=== PATIENT | male | born 1990 | race Two or more races ===

== ENCOUNTER 2017-07-17 15:11 | Inpatient (IN) | payer OTHER ==
[2017-07-17] MEDS ORDERED: P-EPHED 60MG/TRIPROLIDI 2.5MG TABLET PO PRN (15:18)
[2017-07-17] MEDS ORDERED: MAG HYDROX/AL HYDROX/SIMETH 30 ML UNIT-DOSE CUP PO PRN (15:18)
[2017-07-17] MEDS ORDERED: MAGNESIUM HYDROX 2400MG/30ML ORAL SUSPENSION 30 ML CUP PO PRN (15:18)
[2017-07-17] MEDS ORDERED: guaiFENesin/D-METHORPHAN HB 10 ML UNIT-DOSE CUPS PO PRN (15:18)
[2017-07-17] MEDS ORDERED: ACETAMINOPHEN 325 MG TABLET (FP) PO PRN (15:18)
[2017-07-17] MEDS ORDERED: MAGNESIUM CITRATE 300 ML BOTTLE PO PRN (15:18)
[2017-07-17] MEDS ORDERED: MENTHOL/PHENOL 1 EACH UD MM PRN (15:18)
[2017-07-17] MEDS ORDERED: NICOTINE POLACRILEX 2 MG GUM BUC PRN (15:18)
--- NOTE | 2017-07-17 15:26 | HP ---
[facility] Rehab Assess/Revision - Admission History Admitted to Rehab from: [facility] Date of Admission to Rehab: 07/17/2017 - Vital signs Vital Signs: NOTED; STABLE. - Findings Detox History & Physical reviewed: Yes Concur with findings: Yes Comments/Additional Findings: PATIENT'S MEDICAL / MEDICATION HISTORY REVIEWED PRIOR TO DISCHARGE FROM DETOX UNIT. PATIENT WAS DISCHARGED FROM DETOX UNIT TO BE TAKEN OVER TO REHAB UNIT IN STABLE MEDICAL CONDITION. Inpatient Rehab Admission - Initial Determination Are CD services needed?: Yes Free of communicable disease: Yes Not in need of hospitalization: Yes - Rehab Admission Criteria Previous failed treatment: Yes Comorbidities: Yes Patient is meeting Inpatient Rehab admission criteria:: Yes
--- NOTE | 2017-07-17 15:45 | HP ---
Psychiatrist Admission - Data Date of interview: 07/17/17 Admission source: 3N Identifying data: THis is the first 5N inpatient rehabilitation admission for this 27 year old male father of one who is unemployed and stays with his friends/relatives. Medical History: HIV+ since his . Psychiatric History: Patient is poor historian, he reports was diagnosed as ADD and ,Schizoaffective,Bipolar was treated with adderall, gabapentin(for peripheral pain), topomax, trazodone, not on any medications at present, states last time he was on medss was year ago, admits was hospiatliazed a "few times" no recollection, asking for adderall, suboxone. Reviwed the pharmacy claims, no psychotropics found. Physical/Sexual Abuse/Trauma History: Denies history of abuse. Allergies/Adverse Reactions: Allergies Allergy/AdvReac Type Severity Reaction Status Date / Time No Known Allergies Allergy Verified 07/15/17 00:53 Date of last physical exam: 07/14/17 Concur with the findings of this exam: Yes - Substance Abuse/Tx History Hx Alcohol Use: Yes (2-24 oz beer daily) Hx Substance Use: Yes Substance Use Type: Cocaine ($100 daily), Heroin (3 bags 3 -6 x week), Tranquilizers (xanax, klonopin daily use.) Hx Substance Use Treatment: Yes Mental Status Exam - Mental Status Exam Alert and Oriented to: Place, Person Cognitive Function: Impaired Patient Appearance: Well Groomed Mood: Angry, Irritable Affect: Mood Congruent Patient Behavior: Cooperative Speech Pattern: Clear, Appropriate Voice Loudness: Normal Thought Process: Goal Oriented Thought Disorder: Not Present Hallucinations: None Suicidal Ideation: None Homicidal Ideation: None Insight/Judgement: Fair Sleep: Fair Appetite: Fair Muscle strength/Tone: Normal Psychiatric Findings - Problem List ([place] 1, 2,3) (1) History of bipolar disorder Current Visit: Yes Status: Acute (2) Alcohol dependence Current Visit: No Status: Active (3) Cocaine dependence Current Visit: No Status: Active (4) Nicotine dependence Current Visit: No Status: Chronic Qualifiers: Nicotine product type: cigarettes Substance use status: uncomplicated Qualified Code(s): F17.210 - Nicotine dependence, cigarettes, uncomplicated (5) HIV (human immunodeficiency virus infection) Current Visit: No Status: Suspected - Initial Treatment Plan Initial Treatment Plan: will monitor progress, patient was recommended to restart medications(trazodone, Depakote) he declined, he was refererd to see MD for suboxone and Gabapentin.
[2017-07-17] MEDS: THIAMINE HCL 100 MG TABLET (FP) PO SCH (21:33)
[2017-07-17] MEDS: MELATONIN 5 MG TABLETS PO SCH (21:33)
[2017-07-18] MEDS: IBUPROFEN 400 MG TABLET (FP) PO PRN (01:19)
[2017-07-18] MEDS: MELATONIN 5 MG TABLETS PO SCH ×2 (01:19→21:35)
[2017-07-18] MEDS: NICOTINE 21 MG/24 HOURS TOPICAL PATCH TD SCH (10:47)
[2017-07-18] MEDS: PRENATAL VITAMINS W/ FOLIC ACID TABLET (FP) PO SCH (10:47)
[2017-07-18] MEDS: THIAMINE HCL 100 MG TABLET (FP) PO SCH (21:35)
[2017-07-19] MEDS: NICOTINE 21 MG/24 HOURS TOPICAL PATCH TD SCH (11:00)
[2017-07-19] MEDS: PRENATAL VITAMINS W/ FOLIC ACID TABLET (FP) PO SCH ×2 (11:00)
[2017-07-19] MEDS: IBUPROFEN 400 MG TABLET (FP) PO PRN (11:51)
[2017-07-19] MEDS: MELATONIN 5 MG TABLETS PO SCH (21:36)
[2017-07-19] MEDS: THIAMINE HCL 100 MG TABLET (FP) PO SCH (21:36)
[2017-07-20] MEDS: hydrOXYzine PAMOATE 50 MG CAPSULE (FP) PO PRN ×2 (01:50→21:42)
[2017-07-20] MEDS: PRENATAL VITAMINS W/ FOLIC ACID TABLET (FP) PO SCH (10:50)
[2017-07-20] MEDS: NICOTINE 21 MG/24 HOURS TOPICAL PATCH TD SCH (12:06)
[2017-07-20] MEDS: THIAMINE HCL 100 MG TABLET (FP) PO SCH (21:41)
[2017-07-20] MEDS: MELATONIN 5 MG TABLETS PO SCH (21:41)
[2017-07-21] MEDS: PRENATAL VITAMINS W/ FOLIC ACID TABLET (FP) PO SCH (11:00)
[2017-07-21] MEDS: NICOTINE 21 MG/24 HOURS TOPICAL PATCH TD SCH (11:00)
--- NOTE | 2017-07-21 13:24 | PN ---
[facility] Progress Note Note: Patient reports he will like to start Suboxone treatment for opiod use. As per patient he was using street Suboxone prior to admission to [facility] detox on 07/14/17 , and reports while in [facility] [place] he was treated for 7 months with Suboxone. Patient reports diarrhea, nausea, vomiting. Upon admission to [facility] on and on 2012 utox are negative for opiod use. l Vital Signs Temperature 97.7 F 07/20/17 06:45 Pulse Rate 60 07/20/17 06:45 Respiratory Rate 16 07/21/17 06:49 Blood Pressure 113/69 07/20/17 06:45 O2 Sat by Pulse Oximetry (%) Patient, AOx3 in no apparent distress ambulating in the unit. No signs or symptoms of dehydration noted Plan: After careful review of patients record and [employer] :Reference #: [id number] which shows no rx written for Suboxone for this patient and case was reviewed with Dr. Og, patient is not an appropriate candidate for Suboxone treatment, has no history of opiod dependence. nause/ vomiting: Zofran 4mg SL PRN diarreha: Immodium PRN Increase fluids Continue to monitor
[2017-07-21] MEDS: MELATONIN 5 MG TABLETS PO SCH (21:27)
[2017-07-21] MEDS: THIAMINE HCL 100 MG TABLET (FP) PO SCH (21:27)
[2017-07-21] MEDS: hydrOXYzine PAMOATE 50 MG CAPSULE (FP) PO PRN (21:27)
[2017-07-21] MEDS: LOPERAMIDE HCL 2 MG CAPSULE PO PRN (23:07)
[2017-07-21] MEDS: IBUPROFEN 400 MG TABLET (FP) PO PRN (23:07)
[2017-07-22] MEDS: hydrOXYzine PAMOATE 50 MG CAPSULE (FP) PO PRN (03:32)
[2017-07-22] MEDS: IBUPROFEN 400 MG TABLET (FP) PO PRN (03:33)
[2017-07-22] MEDS: PRENATAL VITAMINS W/ FOLIC ACID TABLET (FP) PO SCH (10:12)
[2017-07-22] MEDS: NICOTINE 21 MG/24 HOURS TOPICAL PATCH TD SCH (10:12)
[2017-07-22] MEDS ORDERED: BUPRENORPHINE/NALOXONE 2 MG/0.5 MG FILM PACKET SL ONE (17:30)
--- NOTE | 2017-07-22 17:31 | PN ---
[facility] Progress Note Note: Patient reports headache, sweating and nausea with vomiting. States he has taken suboxone non-prescription however UA negative for opiods. Also has no record of prescription suboxone. Dr. Og notified and case discussed. Pt not candidate for suboxone. Pt insists he has taken non-precription suboxone and would like retesting of urine. Urine detox ordered. Will isabel clinicallly.
--- NOTE | 2017-07-22 17:58 | PN ---
[facility] Progress Note Note: Urine detox negative for opiates. Patient remains not a candidate for suboxone. Nursing staff informed.
[2017-07-22] MEDS: MELATONIN 5 MG TABLETS PO SCH (21:27)
[2017-07-22] MEDS: GABAPENTIN 100 MG CAPSULE (FP) PO SCH (21:27)
[2017-07-22] MEDS: THIAMINE HCL 100 MG TABLET (FP) PO SCH (21:27)
[2017-07-23] MEDS: GABAPENTIN 100 MG CAPSULE (FP) PO SCH ×3 (06:45→21:54)
[2017-07-23] MEDS ORDERED: BUPRENORPHINE/NALOXONE 2 MG/0.5 MG FILM PACKET SL SCH (10:00)
[2017-07-23] MEDS: PRENATAL VITAMINS W/ FOLIC ACID TABLET (FP) PO SCH (10:35)
[2017-07-23] MEDS: NICOTINE 21 MG/24 HOURS TOPICAL PATCH TD SCH (10:35)
[2017-07-23] MEDS ORDERED: COLLOIDAL OATMEAL 1 BAR EACH TP PRN (15:18)
[2017-07-23] MEDS ORDERED: HYDROCORTISONE 1% TOPICAL CREAM 30 GM TUBE TP PRN (15:18)
--- NOTE | 2017-07-23 15:24 | PN ---
S Progress Note Note: Patient c/o red lump with scab on the right cheek. Itchy skin after showering with current soap and dry itchy skin on the left elbow. Vital Signs Temperature 97.6 F 07/23/17 07:22 Pulse Rate 67 07/23/17 07:22 Respiratory Rate 16 07/23/17 07:22 Blood Pressure 131/85 07/23/17 07:22 O2 Sat by Pulse Oximetry (%) Subj: Afebrile. No CP or SOB reported. Dry itchy skin, and redness on the right cheek Obj: Gen: no apparent distress Derm: Skin warm and dry, rigth cheek erythema, open hard nodule without drainage Car: S1, S2. RRR. Resp: CTA BL, no wheezing or rales A/P: abscess, acute dermatitis Mupirocin to right cheek TID Hydrocortisone cream to left elbow Aveno soap Increase fluids continue to monitor
[2017-07-23] MEDS: IBUPROFEN 400 MG TABLET (FP) PO PRN (15:45)
[2017-07-23] MEDS: MUPIROCIN CA 2% TOPICAL CREAM 15 GM TUBE TP SCH ×2 (19:43→21:53)
[2017-07-23] MEDS: MELATONIN 5 MG TABLETS PO SCH (21:54)
[2017-07-23] MEDS: THIAMINE HCL 100 MG TABLET (FP) PO SCH (21:54)
[2017-07-24] MEDS: IBUPROFEN 400 MG TABLET (FP) PO PRN ×2 (01:37→19:09)
[2017-07-24] MEDS: GABAPENTIN 100 MG CAPSULE (FP) PO SCH ×2 (06:17→14:45)
[2017-07-24] MEDS: MUPIROCIN CA 2% TOPICAL CREAM 15 GM TUBE TP SCH ×3 (06:17→21:22)
[2017-07-24] MEDS: PRENATAL VITAMINS W/ FOLIC ACID TABLET (FP) PO SCH (10:01)
[2017-07-24] MEDS: NICOTINE 21 MG/24 HOURS TOPICAL PATCH TD SCH (10:02)
[2017-07-24] MEDS: LOPERAMIDE HCL 2 MG CAPSULE PO PRN ×2 (14:46→21:23)
--- NOTE | 2017-07-24 14:56 | PN ---
Psychiatric Progress Note Vital Signs: Vital Signs Period Temp Pulse Resp BP Sys/Montalvo Pulse Ox Last 24 Hr 98.6 F 60 18-18 116/60 Date of Session: 07/24/17 Chief Complaint:: "mood swings" HPI: Patient is addressing alcohol, coaine, opioid, benzo, nicotine dependence comorbid bipolar disorder. ROS: HIV+ since his medically managed. Current Medications: Active Medications Generic Name Dose Route Start Last Admin Trade Name Freq PRN Reason Stop Dose Admin Acetaminophen 650 mg 07/17/17 15:18 Tylenol - PO Q4H PRN FEVER Al Hydroxide/Mg Hydroxide 30 ml 07/17/17 15:18 07/22/17 03:32 Mylanta Oral Suspension - PO 30 ml Q6H PRN Administration DYSPEPSIA Bupropion HCl 150 mg 07/25/17 10:00 Wellbutrin Xl - PO DAILY SPENCER Colloidal Oatmeal 1 applic 07/23/17 15:18 07/23/17 21:56 Aveeno Soap - TP 1 applic DAILY PRN Administration HYGEINE Eucalyptus/Menthol/Phenol/Sorbitol 1 each 07/17/17 15:18 Cepastat Lozenge - MM Q4H PRN SORE THROAT Gabapentin 400 mg 07/24/17 14:52 Neurontin - PO TID SPENCER Guaifenesin 10 ml 07/17/17 15:18 Robitussin Dm - PO Q6H PRN COUGH Hydrocortisone 1 applic 07/23/17 15:18 Hytone 1% Cream - TP BID PRN FOR ITCHING Hydroxyzine Pamoate 50 mg 07/20/17 00:56 07/22/17 03:32 Vistaril - PO 50 mg Q6H PRN Administration FOR ITCHING Ibuprofen 400 mg 07/17/17 15:18 07/24/17 01:37 Motrin - PO 400 mg Q6H PRN Administration Pain Level 4-6 Loperamide HCl 4 mg 07/17/17 15:18 07/24/17 14:46 Imodium - PO 4 mg Q6H PRN Administration DIARRHEA Magnesium Citrate 300 ml 07/17/17 15:18 Citroma - PO Q48H PRN CONSTIPATION Magnesium Hydroxide 30 ml 07/17/17 15:18 Milk Of Magnesia - PO DAILY PRN CONSTIPATION Melatonin 5 mg 07/17/17 22:00 07/23/17 21:54 Melatonin PO 5 mg HS SPENCER Administration Mupirocin 1 applic 07/23/17 15:30 07/24/17 14:46 Bactroban 2% Cream - TP 1 applic TID SPENCER Administration Nicotine 21 mg 07/18/17 10:00 07/24/17 10:02 Nicoderm Patch - TD 21 mg DAILY SPENCER Administration Nicotine Polacrilex 2 mg 07/17/17 15:18 07/20/17 21:42 Nicorette Gum - BUC 2 mg Q2H PRN Administration NICOTINE REPLACEMENT RX Multivit/Folic Acid/Iron 1 tab 07/18/17 10:00 07/24/17 10:01 Vitamins (Sjr) - PO 1 tab DAILY SPENCER Administration Pseudoephedrine/Triprolidine 1 combo 07/17/17 15:18 Actifed - PO TID PRN NASAL CONGESTION Thiamine HCl 100 mg 07/17/17 22:00 07/23/17 21:54 Vitamin B1 - PO 100 mg HS SPENCER Administration Current Side Effect: No Lab tests ordered: No Lab tests reviewed: Yes Provider note:: Patient was seen today, c/o mood swings, low energy level, fatiqued, irritablity, depressed mood,reports he was on Gabapentin 2400 mg daily also recalls was on Wellbutrin 450 mg , now states he wants to restart medications, discussed indications and properties medications, recommended to start with wellbutrin Xr 150 mg po daily and to increase Gabapentin 400 mg po tid(currently on 100 mg po tid for ordered for peripheral neuropathy), patient agreed with careplan, continue to monitor progress. Total face to face time:: 35 Mental Status Exam - Mental Status Exam Alert and Oriented to: Time, Place, Person Cognitive Function: Good Patient Appearance: Well Groomed Mood: Angry, Depressed, Sad, Anxious, Irritable Affect: Mood Congruent, Labile Patient Behavior: Cooperative Speech Pattern: Appropriate Voice Loudness: Normal Thought Process: Goal Oriented Thought Disorder: Not Present Hallucinations: Denies Suicidal Ideation: Denies Homicidal Ideation: Denies Insight/Judgement: Fair Sleep: Fair Appetite: Fair Muscle strength/Tone: Normal Gait/Station: Normal Psychiatric Treatment Plan - Problem List (1) History of bipolar disorder Current Visit: Yes (2) Alcohol dependence Current Visit: Yes (3) Cocaine dependence Current Visit: Yes (4) Nicotine dependence Current Visit: No Qualifiers: Nicotine product type: cigarettes Substance use status: uncomplicated Qualified Code(s): F17.210 - Nicotine dependence, cigarettes, uncomplicated (5) HIV (human immunodeficiency virus infection) Current Visit: Yes (6) Opioid dependence Current Visit: Yes (7) Benzodiazepine dependence Current Visit: Yes
[2017-07-24] MEDS: MELATONIN 5 MG TABLETS PO SCH (21:21)
[2017-07-24] MEDS: THIAMINE HCL 100 MG TABLET (FP) PO SCH (21:21)
[2017-07-24] MEDS: GABAPENTIN 400 MG CAPSULE (FP) PO SCH (21:21)
[2017-07-25] MEDS: hydrOXYzine PAMOATE 50 MG CAPSULE (FP) PO PRN (00:46)
[2017-07-25] MEDS: MUPIROCIN CA 2% TOPICAL CREAM 15 GM TUBE TP SCH ×3 (06:31→21:44)
[2017-07-25] MEDS: GABAPENTIN 400 MG CAPSULE (FP) PO SCH ×3 (06:31→21:42)
[2017-07-25] MEDS: PRENATAL VITAMINS W/ FOLIC ACID TABLET (FP) PO SCH (10:31)
[2017-07-25] MEDS: NICOTINE 21 MG/24 HOURS TOPICAL PATCH TD SCH (10:31)
[2017-07-25] MEDS: IBUPROFEN 400 MG TABLET (FP) PO PRN (17:33)
--- NOTE | 2017-07-25 18:50 | PN ---
S Progress Note Note: furuncle of right mandibular area for 3 days,erythema,no fever, no fluctuation treatment keflex 500 mgs po now then q 6 hrs for 7 days bacitracin ointment bid also has withdrawal symptom from opiate psoriasis both forearm hydrocortisone ointment 0.05% over rash forearm bid flexeril 10 mgs po tid prn for 72 hrs clonidine 0.1 mg po bid for 72 hrs motrin 600 mgs po q6hrs prn for pain close monitoring
[2017-07-25] MEDS ORDERED: IBUPROFEN 600 MG TABLET (FP) PO PRN (18:51)
[2017-07-25] MEDS ORDERED: CYCLOBENZAPRINE HCL 10 MG TABLET (FP) PO ONE (19:00)
[2017-07-25] MEDS ORDERED: CEPHALEXIN MONOHYDRATE 500 MG CAPSULE (UD) PO ONE (19:30)
[2017-07-25] MEDS: MELATONIN 5 MG TABLETS PO SCH (21:41)
[2017-07-25] MEDS: THIAMINE HCL 100 MG TABLET (FP) PO SCH (21:41)
[2017-07-25] MEDS: BACITRACIN 0.9 GM PACKET TP SCH (21:42)
[2017-07-25] MEDS: cloNIDine HCL 0.1 MG TABLET PO SCH (21:44)
[2017-07-25] MEDS: HYDROCORTISONE 0.5% TOPICAL OINTMENT TUBE TP SCH (22:55)
[2017-07-25] MEDS: CEPHALEXIN MONOHYDRATE 500 MG CAPSULE (UD) PO SCH (23:05)
[2017-07-26] MEDS: MUPIROCIN CA 2% TOPICAL CREAM 15 GM TUBE TP SCH ×3 (06:38→21:19)
[2017-07-26] MEDS: GABAPENTIN 400 MG CAPSULE (FP) PO SCH ×3 (06:38→21:18)
[2017-07-26] MEDS: CEPHALEXIN MONOHYDRATE 500 MG CAPSULE (UD) PO SCH ×4 (06:38→23:46)
[2017-07-26] MEDS: CYCLOBENZAPRINE HCL 10 MG TABLET (FP) PO PRN ×2 (06:40→21:18)
[2017-07-26 07:41] VITALS: TEMP 97.7
[2017-07-26] MEDS: PRENATAL VITAMINS W/ FOLIC ACID TABLET (FP) PO SCH (10:38)
[2017-07-26] MEDS: BACITRACIN 0.9 GM PACKET TP SCH ×2 (10:38→21:18)
[2017-07-26] MEDS: cloNIDine HCL 0.1 MG TABLET PO SCH ×2 (10:38→21:18)
[2017-07-26] MEDS: NICOTINE 21 MG/24 HOURS TOPICAL PATCH TD SCH (10:39)
[2017-07-26] MEDS: HYDROCORTISONE 0.5% TOPICAL OINTMENT TUBE TP SCH ×2 (11:29→21:18)
[2017-07-26] MEDS: MELATONIN 5 MG TABLETS PO SCH (21:18)
[2017-07-26] MEDS: THIAMINE HCL 100 MG TABLET (FP) PO SCH (21:18)
[2017-07-27 00:01] VITALS: BP 122/71; PULSE 79
[2017-07-27] MEDS: GABAPENTIN 400 MG CAPSULE (FP) PO SCH (07:48)
[2017-07-27] MEDS: CEPHALEXIN MONOHYDRATE 500 MG CAPSULE (UD) PO SCH (07:48)
[2017-07-27] MEDS: MUPIROCIN CA 2% TOPICAL CREAM 15 GM TUBE TP SCH (07:48)
[2017-07-27] MEDS: HYDROCORTISONE 0.5% TOPICAL OINTMENT TUBE TP SCH (09:40)
[2017-07-27] MEDS: PRENATAL VITAMINS W/ FOLIC ACID TABLET (FP) PO SCH (09:40)
[2017-07-27] MEDS: BACITRACIN 0.9 GM PACKET TP SCH (09:40)
[2017-07-27] MEDS: cloNIDine HCL 0.1 MG TABLET PO SCH (09:40)
[2017-07-27] MEDS: NICOTINE 21 MG/24 HOURS TOPICAL PATCH TD SCH (09:40)
--- NOTE | 2017-07-27 09:42 | PN ---
Psychiatric Progress Note Vital Signs: Vital Signs Period Temp Pulse Resp BP Sys/Montalvo Pulse Ox Last 24 Hr 79-90 17-18 121-122/70-71 Date of Session: 07/27/17 Chief Complaint:: discharge HPI: Patient is addressing alcohol, coaine, opioid, benzo, nicotine dependence comorbid bipolar disorder. ROS: HIV+ since his medically managed. Current Medications: Active Medications Generic Name Dose Route Start Last Admin Trade Name Freq PRN Reason Stop Dose Admin Acetaminophen 650 mg 07/17/17 15:18 07/25/17 21:48 Tylenol - PO 650 mg Q4H PRN Administration FEVER Al Hydroxide/Mg Hydroxide 30 ml 07/17/17 15:18 07/22/17 03:32 Mylanta Oral Suspension - PO 30 ml Q6H PRN Administration DYSPEPSIA Bacitracin 0.9 gm 07/25/17 22:00 07/26/17 21:18 Bacitracin - TP 0.9 gm BID SPENCER Administration Bupropion HCl 150 mg 07/25/17 10:00 07/26/17 10:38 Wellbutrin Xl - PO 150 mg DAILY SPENCER Administration Cephalexin HCl 500 mg 07/26/17 00:00 07/27/17 07:48 Keflex - PO Not Given Q6HPO SPENCER Clonidine 0.1 mg 07/25/17 22:00 07/26/17 21:18 Catapres - PO 07/28/17 23:59 0.1 mg BID SPENCER Administration Colloidal Oatmeal 1 applic 07/23/17 15:18 07/23/17 21:56 Aveeno Soap - TP 1 applic DAILY PRN Administration HYGEINE Cyclobenzaprine HCl 10 mg 07/25/17 18:42 07/26/17 21:18 Flexeril - PO 07/28/17 23:59 10 mg TID PRN Administration MUSCLE SPASMS Eucalyptus/Menthol/Phenol/Sorbitol 1 each 07/17/17 15:18 Cepastat Lozenge - MM Q4H PRN SORE THROAT Gabapentin 400 mg 07/24/17 22:00 07/27/17 07:48 Neurontin - PO Not Given TID SPENCER Guaifenesin 10 ml 07/17/17 15:18 Robitussin Dm - PO Q6H PRN COUGH Hydrocortisone 1 applic 07/25/17 22:00 07/26/17 21:18 Hytone 0.5% Ointment - TP Not Given BID SPENCER Hydroxyzine Pamoate 50 mg 07/20/17 00:56 07/25/17 00:46 Vistaril - PO 50 mg Q6H PRN Administration FOR ITCHING Ibuprofen 600 mg 07/25/17 18:51 07/26/17 07:28 Motrin - PO 600 mg Q6H PRN Administration PAIN LEVEL 4 - 6 Loperamide HCl 4 mg 07/17/17 15:18 07/24/17 21:23 Imodium - PO 4 mg Q6H PRN Administration DIARRHEA Magnesium Citrate 300 ml 07/17/17 15:18 Citroma - PO Q48H PRN CONSTIPATION Magnesium Hydroxide 30 ml 07/17/17 15:18 Milk Of Magnesia - PO DAILY PRN CONSTIPATION Melatonin 5 mg 07/17/17 22:00 07/26/17 21:18 Melatonin PO 5 mg HS SPENCER Administration Mupirocin 1 applic 07/23/17 15:30 07/27/17 07:48 Bactroban 2% Cream - TP Not Given TID SPENCER Nicotine 21 mg 07/18/17 10:00 07/26/17 10:39 Nicoderm Patch - TD 21 mg DAILY SPENCER Administration Nicotine Polacrilex 2 mg 07/17/17 15:18 07/20/17 21:42 Nicorette Gum - BUC 2 mg Q2H PRN Administration NICOTINE REPLACEMENT RX Multivit/Folic Acid/Iron 1 tab 07/18/17 10:00 07/26/17 10:38 Vitamins (Sjr) - PO 1 tab DAILY SPENCER Administration Pseudoephedrine/Triprolidine 1 combo 07/17/17 15:18 Actifed - PO TID PRN NASAL CONGESTION Thiamine HCl 100 mg 07/17/17 22:00 07/26/17 21:18 Vitamin B1 - PO 100 mg HS SPENCER Administration Current Side Effect: No Lab tests ordered: No Lab tests reviewed: Yes Provider note:: Patient was administartively discharged today as was decided by multidisciplinary team due to being non compliant with medication, treatment , the group meeting attendance and participation. Staff tried to intervene and improve patient behavior without any progress, still continued being non-compliant, this morning staff encouraged patient to go to the groups, he became verbally abusive towards the staff using profanity, security called. Patient was evaluated, denies suicidal and homicidal thoughts, he was informed about his discharge, provided with a scripts for 30 days, stable upon d /c. Patient was referred to [facility]. Total face to face time:: 15 Mental Status Exam - Mental Status Exam Alert and Oriented to: Time, Place, Person Cognitive Function: Grossly Intact Patient Appearance: Well Groomed Affect: Appropriate, Mood Congruent Patient Behavior: Appropriate, Cooperative Speech Pattern: Clear, Appropriate Voice Loudness: Normal Thought Process: Goal Oriented Thought Disorder: Not Present Hallucinations: Denies Suicidal Ideation: Denies Homicidal Ideation: Denies Insight/Judgement: Fair Sleep: Fair Appetite: Fair Muscle strength/Tone: Normal Gait/Station: Normal Psychiatric Treatment Plan - Problem List (4) Nicotine dependence Qualifiers: Nicotine product type: cigarettes Substance use status: uncomplicated Qualified Code(s): F17.210 - Nicotine dependence, cigarettes, uncomplicated
== END 2017-07-27 09:50 | disposition left against medical advice (07) | DRG 772 ==
LOC: YASAS 15:11 → Y5N 15:12
PROVIDERS: ADMIT Psychiatry & Neurology Psychiatry; ATTEND Psychiatry & Neurology Psychiatry
PROC: HZ42ZZZ Group Counseling for Substance Abuse Treatment, Cognitive-Behavioral (ICD-10-PCS; principal; 2017-07-17)
DX: F11.20 Opioid dependence, uncomplicated (principal); F13.20 Sedative, hypnotic or anxiolytic dependence, uncomplicated; F10.20 Alcohol dependence, uncomplicated; F14.20 Cocaine dependence, uncomplicated; F17.210 Nicotine dependence, cigarettes, uncomplicated; F31.9 Bipolar disorder, unspecified; Z21 Asymptomatic human immunodeficiency virus [HIV] infection status; Z91.19 Patient's noncompliance with other medical treatment and regimen
CPT/HCPCS: J0735

== ENCOUNTER 2020-09-23 14:33 | Inpatient (IN) | payer OTHER ==
[2020-09-23 16:08] VITALS: BMI 32.1
[2020-09-23] MEDS ORDERED: P-EPHED 60MG/TRIPROLIDI 2.5MG TABLET PO PRN (18:41)
[2020-09-23] MEDS ORDERED: guaiFENesin 200 MG/10 ML 10 ML UNIT-DOSE CUPS PO PRN (18:41)
[2020-09-23] MEDS ORDERED: ACETAMINOPHEN 325 MG TABLET (FP) PO PRN (18:41)
[2020-09-23] MEDS ORDERED: IBUPROFEN 400 MG TABLET (FP) PO PRN (18:41)
[2020-09-23] MEDS ORDERED: MAG HYDROX/AL HYDROX/SIMETH 30 ML UNIT-DOSE CUP PO PRN (18:41)
[2020-09-23] MEDS ORDERED: NICOTINE POLACRILEX 2 MG GUM BC PRN (18:41)
[2020-09-23] MEDS ORDERED: MAGNESIUM HYDROX 2400MG/30ML ORAL SUSPENSION 30 ML CUP PO PRN (18:41)
[2020-09-23] MEDS ORDERED: MAGNESIUM CITRATE 300 ML BOTTLE PO PRN (18:41)
[2020-09-23] MEDS ORDERED: TUBERCULIN PPD 5 TU/0.1ML VIAL ID ONE (21:48)
[2020-09-23] MEDS: THIAMINE HCL 100 MG TABLET (FP) PO SCH (21:55)
[2020-09-23] MEDS: MELATONIN 5 MG TABLETS PO SCH (21:55)
[2020-09-23] MEDS: hydrOXYzine PAMOATE 25 MG CAPSULE (FP) PO SCH (21:55)
[2020-09-24] MEDS: hydrOXYzine PAMOATE 25 MG CAPSULE (FP) PO SCH ×5 (06:47→22:18)
[2020-09-24] MEDS ORDERED: NICOTINE 7 MG/24 HOURS TOPICAL PATCH TD SCH (10:00)
[2020-09-24 10:11] LABS: HEMATOCRIT 42.8 % (35.4-49); HEMOGLOBIN 14.1 GM/dL (11.7-16.9); MCH 26.2 pg (25.7-33.7); MEAN CELL VOLUME 79.2 fl (80-96); MEAN PLT VOLUME 8.6 fl (7.5-11.1); PLATELET COUNT 150 K/MM3 (134-434); RDW 16.7 % (11.9-15.9)
[2020-09-24] MEDS: PRENATAL VITAMINS W/ FOLIC ACID TABLET (FP) PO SCH (10:32)
[2020-09-24] MEDS: DARUNAVIR ETHANOLATE 800 MG TAB PO SCH (10:33)
[2020-09-24 10:48] LABS: CALCIUM 8.2 mg/dL (8.5-10.1)
[2020-09-24 10:49] LABS: BLOOD UREA NITROGEN 9.4 mg/dL (7-18)
[2020-09-24 10:52] LABS: CREATININE 0.9 mg/dL (0.55-1.3)
[2020-09-24 10:53] LABS: BILIRUBIN,TOTAL 0.2 mg/dL (0.2-1); TOT PROT 6.3 g/dl (6.4-8.2)
[2020-09-24] MEDS ORDERED: DIVALPROEX SODIUM 500 MG TABLET E.C. PO SCH (22:00)
[2020-09-24] MEDS: THIAMINE HCL 100 MG TABLET (FP) PO SCH (22:18)
[2020-09-24] MEDS: MELATONIN 5 MG TABLETS PO SCH (22:18)
[2020-09-25] MEDS: hydrOXYzine PAMOATE 25 MG CAPSULE (FP) PO SCH ×5 (06:41→21:02)
[2020-09-25] MEDS: PRENATAL VITAMINS W/ FOLIC ACID TABLET (FP) PO SCH (09:43)
[2020-09-25] MEDS: NICOTINE 21 MG/24 HOURS TOPICAL PATCH TD SCH (09:44)
[2020-09-25] MEDS ORDERED: ZIPRASIDONE 20 MG CAPSULE PO SCH (10:00)
[2020-09-25] MEDS: DARUNAVIR ETHANOLATE 800 MG TAB PO SCH (10:47)
[2020-09-25] MEDS ORDERED: DIVALPROEX SODIUM 500 MG TABLET E.C. PO SCH ×2 (15:58→22:00)
[2020-09-25] MEDS: MELATONIN 5 MG TABLETS PO SCH (21:01)
[2020-09-25] MEDS: THIAMINE HCL 100 MG TABLET (FP) PO SCH (21:01)
[2020-09-25] MEDS: DIVALPROEX SODIUM 500 MG TABLET E.C. PO SCH (21:02)
[2020-09-26] MEDS: hydrOXYzine PAMOATE 25 MG CAPSULE (FP) PO SCH ×5 (07:47→21:19)
[2020-09-26] MEDS: LOPERAMIDE HCL 2 MG CAPSULE PO PRN (09:10)
[2020-09-26] MEDS: PRENATAL VITAMINS W/ FOLIC ACID TABLET (FP) PO SCH (09:10)
[2020-09-26] MEDS: ZIPRASIDONE 40 MG CAPSULE PO SCH (09:11)
[2020-09-26] MEDS: DARUNAVIR ETHANOLATE 800 MG TAB PO SCH (09:11)
[2020-09-26] MEDS: NICOTINE 21 MG/24 HOURS TOPICAL PATCH TD SCH (09:11)
[2020-09-26] MEDS: ELVITEG/COB/EMTRI/TENOF (GENVOYA) TABLET (NF) PO SCH (09:11)
[2020-09-26] MEDS ORDERED: ZIPRASIDONE 20 MG CAPSULE PO SCH (10:00)
[2020-09-26] MEDS: THIAMINE HCL 100 MG TABLET (FP) PO SCH (21:18)
[2020-09-26] MEDS: DIVALPROEX SODIUM 500 MG TABLET E.C. PO SCH (21:18)
[2020-09-26] MEDS: MELATONIN 5 MG TABLETS PO SCH (21:18)
[2020-09-27] MEDS: hydrOXYzine PAMOATE 25 MG CAPSULE (FP) PO SCH ×5 (07:11→21:01)
[2020-09-27] MEDS: ZIPRASIDONE 40 MG CAPSULE PO SCH (09:05)
[2020-09-27] MEDS: PRENATAL VITAMINS W/ FOLIC ACID TABLET (FP) PO SCH (09:05)
[2020-09-27] MEDS: ELVITEG/COB/EMTRI/TENOF (GENVOYA) TABLET (NF) PO SCH (09:05)
[2020-09-27] MEDS: NICOTINE 21 MG/24 HOURS TOPICAL PATCH TD SCH (09:06)
[2020-09-27] MEDS: LOPERAMIDE HCL 2 MG CAPSULE PO PRN (09:08)
[2020-09-27] MEDS: DARUNAVIR ETHANOLATE 800 MG TAB PO SCH (09:10)
[2020-09-27 14:12] LABS: SARS-CoV-2 NAA Not Detected (Not Detected)
[2020-09-27] MEDS: THIAMINE HCL 100 MG TABLET (FP) PO SCH (21:01)
[2020-09-27] MEDS: DIVALPROEX SODIUM 500 MG TABLET E.C. PO SCH (21:01)
[2020-09-27] MEDS: MELATONIN 5 MG TABLETS PO SCH (21:01)
[2020-09-28] MEDS: hydrOXYzine PAMOATE 25 MG CAPSULE (FP) PO SCH ×5 (07:13→21:56)
[2020-09-28] MEDS: DARUNAVIR ETHANOLATE 800 MG TAB PO SCH (09:01)
[2020-09-28] MEDS: NICOTINE 21 MG/24 HOURS TOPICAL PATCH TD SCH (09:01)
[2020-09-28] MEDS: PRENATAL VITAMINS W/ FOLIC ACID TABLET (FP) PO SCH (09:01)
[2020-09-28] MEDS: ELVITEG/COB/EMTRI/TENOF (GENVOYA) TABLET (NF) PO SCH (09:02)
[2020-09-28] MEDS: ZIPRASIDONE 40 MG CAPSULE PO SCH (09:03)
[2020-09-28] MEDS: LOPERAMIDE HCL 2 MG CAPSULE PO PRN (09:06)
[2020-09-28 15:05] LABS: URINE APPEARANCE CLEAR; URINE BILIRUBIN NEGATIVE (NEGATIVE); URINE COLOR YELLOW; URINE GLUCOSE (UA) NEGATIVE (NEGATIVE); URINE KETONE NEGATIVE (NEGATIVE); URINE LEUK ESTERASE NEGATIVE (NEGATIVE); URINE NITRITE NEGATIVE (NEGATIVE); URINE PROTEIN NEGATIVE (NEGATIVE); URINE UROBILINOGEN 0.2 mg/dL (0.2-1.0)
[2020-09-28] MEDS: NALTREXONE HCL 50 MG TABLET PO SCH (15:30)
[2020-09-28] MEDS: THIAMINE HCL 100 MG TABLET (FP) PO SCH (21:56)
[2020-09-28] MEDS: MELATONIN 5 MG TABLETS PO SCH (21:56)
[2020-09-28] MEDS: DIVALPROEX SODIUM 500 MG TABLET E.C. PO SCH (21:56)
[2020-09-29] MEDS: hydrOXYzine PAMOATE 25 MG CAPSULE (FP) PO SCH ×5 (07:04→21:11)
[2020-09-29] MEDS: NALTREXONE HCL 50 MG TABLET PO SCH (09:03)
[2020-09-29] MEDS: PRENATAL VITAMINS W/ FOLIC ACID TABLET (FP) PO SCH (09:03)
[2020-09-29] MEDS: NICOTINE 21 MG/24 HOURS TOPICAL PATCH TD SCH (09:03)
[2020-09-29] MEDS: ELVITEG/COB/EMTRI/TENOF (GENVOYA) TABLET (NF) PO SCH (09:04)
[2020-09-29] MEDS: DARUNAVIR ETHANOLATE 800 MG TAB PO SCH (09:04)
[2020-09-29] MEDS: ZIPRASIDONE 40 MG CAPSULE PO SCH (09:05)
[2020-09-29] MEDS: THIAMINE HCL 100 MG TABLET (FP) PO SCH (21:11)
[2020-09-29] MEDS: DIVALPROEX SODIUM 500 MG TABLET E.C. PO SCH (21:11)
[2020-09-29] MEDS: MELATONIN 5 MG TABLETS PO SCH (21:12)
[2020-09-30] MEDS: hydrOXYzine PAMOATE 25 MG CAPSULE (FP) PO SCH ×5 (06:57→21:41)
[2020-09-30] MEDS: NALTREXONE HCL 50 MG TABLET PO SCH (09:02)
[2020-09-30] MEDS: DARUNAVIR ETHANOLATE 800 MG TAB PO SCH (09:03)
[2020-09-30] MEDS: ELVITEG/COB/EMTRI/TENOF (GENVOYA) TABLET (NF) PO SCH (09:03)
[2020-09-30] MEDS: PRENATAL VITAMINS W/ FOLIC ACID TABLET (FP) PO SCH (09:04)
[2020-09-30] MEDS: NICOTINE 21 MG/24 HOURS TOPICAL PATCH TD SCH (09:04)
[2020-09-30] MEDS: ZIPRASIDONE 40 MG CAPSULE PO SCH (09:04)
[2020-09-30] MEDS: MELATONIN 5 MG TABLETS PO SCH (21:41)
[2020-09-30] MEDS: THIAMINE HCL 100 MG TABLET (FP) PO SCH (21:41)
[2020-09-30] MEDS: DIVALPROEX SODIUM 500 MG TABLET E.C. PO SCH (21:41)
[2020-10-01] MEDS: hydrOXYzine PAMOATE 25 MG CAPSULE (FP) PO SCH ×3 (06:30→14:56)
[2020-10-01] MEDS: NALTREXONE HCL 50 MG TABLET PO SCH (09:06)
[2020-10-01] MEDS: PRENATAL VITAMINS W/ FOLIC ACID TABLET (FP) PO SCH (09:06)
[2020-10-01] MEDS: NICOTINE 21 MG/24 HOURS TOPICAL PATCH TD SCH (09:07)
[2020-10-01] MEDS: ELVITEG/COB/EMTRI/TENOF (GENVOYA) TABLET (NF) PO SCH (09:07)
[2020-10-01] MEDS: ZIPRASIDONE 40 MG CAPSULE PO SCH (09:07)
[2020-10-01] MEDS: DARUNAVIR ETHANOLATE 800 MG TAB PO SCH (09:07)
[2020-10-01] MEDS: DIVALPROEX SODIUM 500 MG TABLET E.C. PO SCH (21:06)
[2020-10-01] MEDS: THIAMINE HCL 100 MG TABLET (FP) PO SCH (21:06)
[2020-10-01] MEDS: MELATONIN 5 MG TABLETS PO SCH (21:06)
[2020-10-02] MEDS: ELVITEG/COB/EMTRI/TENOF (GENVOYA) TABLET (NF) PO SCH (08:40)
[2020-10-02] MEDS: DARUNAVIR ETHANOLATE 800 MG TAB PO SCH (08:40)
[2020-10-02] MEDS: PRENATAL VITAMINS W/ FOLIC ACID TABLET (FP) PO SCH (09:08)
[2020-10-02] MEDS: ZIPRASIDONE 40 MG CAPSULE PO SCH (09:08)
[2020-10-02] MEDS: BUPRENORPHINE/NALOXONE 4 MG/1 MG FILM PACKET SL SCH ×2 (09:09→21:38)
[2020-10-02] MEDS: NICOTINE 21 MG/24 HOURS TOPICAL PATCH TD SCH (09:09)
[2020-10-02] MEDS: LOPERAMIDE HCL 2 MG CAPSULE PO PRN (09:37)
[2020-10-02] MEDS: DIVALPROEX SODIUM 500 MG TABLET E.C. PO SCH (21:37)
[2020-10-02] MEDS: MELATONIN 5 MG TABLETS PO SCH (21:37)
[2020-10-02] MEDS: THIAMINE HCL 100 MG TABLET (FP) PO SCH (21:37)
[2020-10-02] MEDS: hydrOXYzine PAMOATE 25 MG CAPSULE (FP) PO PRN (23:22)
[2020-10-03] MEDS: hydrOXYzine PAMOATE 25 MG CAPSULE (FP) PO PRN ×2 (02:09→21:05)
[2020-10-03] MEDS: ZIPRASIDONE 40 MG CAPSULE PO SCH (09:08)
[2020-10-03] MEDS: PRENATAL VITAMINS W/ FOLIC ACID TABLET (FP) PO SCH (09:08)
[2020-10-03] MEDS: BUPRENORPHINE/NALOXONE 4 MG/1 MG FILM PACKET SL SCH ×2 (09:09→20:03)
[2020-10-03] MEDS: ELVITEG/COB/EMTRI/TENOF (GENVOYA) TABLET (NF) PO SCH (09:09)
[2020-10-03] MEDS: DARUNAVIR ETHANOLATE 800 MG TAB PO SCH (09:09)
[2020-10-03] MEDS: NICOTINE 21 MG/24 HOURS TOPICAL PATCH TD SCH (09:09)
[2020-10-03] MEDS: LOPERAMIDE HCL 2 MG CAPSULE PO PRN (09:32)
[2020-10-03] MEDS ORDERED: MASKS NR ONE (20:02)
[2020-10-03] MEDS: THIAMINE HCL 100 MG TABLET (FP) PO SCH (21:04)
[2020-10-03] MEDS: DIVALPROEX SODIUM 500 MG TABLET E.C. PO SCH (21:05)
[2020-10-03] MEDS: MELATONIN 5 MG TABLETS PO SCH (21:05)
[2020-10-04] MEDS: hydrOXYzine PAMOATE 25 MG CAPSULE (FP) PO PRN ×2 (01:34→05:26)
[2020-10-04 08:02] VITALS: BP 156/83; PULSE 98; TEMP 97.3
== END 2020-10-04 06:47 | disposition short-term general hospital (02) | DRG 772 ==
LOC: YASAS 14:33 → Y3W 19:29
PROVIDERS: ADMIT Allergy & Immunology; ATTEND Allergy & Immunology
PROC: HZ42ZZZ Group Counseling for Substance Abuse Treatment, Cognitive-Behavioral (ICD-10-PCS; principal; 2020-09-23)
DX: F11.20 Opioid dependence, uncomplicated (principal); F10.20 Alcohol dependence, uncomplicated; F13.20 Sedative, hypnotic or anxiolytic dependence, uncomplicated; F15.20 Other stimulant dependence, uncomplicated; F17.210 Nicotine dependence, cigarettes, uncomplicated; F31.9 Bipolar disorder, unspecified; Z21 Asymptomatic human immunodeficiency virus [HIV] infection status; G62.9 Polyneuropathy, unspecified; M54.5 Low back pain; G89.29 Other chronic pain; Z88.8 Allergy status to other drugs, medicaments and biological substances; Z91.14 Patient's other noncompliance with medication regimen; Z56.0 Unemployment, unspecified; Z59.0 Homelessness
CPT/HCPCS: 36415; 80053; 80164; 81003; 85027; 86780; 93005; 93010; C9803; U0003; U0005

== ENCOUNTER 2022-11-25 13:32 | Inpatient (IN) | payer OTHER ==
[2022-11-25 14:18] VITALS: BMI 23.5
[2022-11-25] MEDS ORDERED: POLYETHYLENE GLYCOL (HEALTHYLAX) 3350 17 GM PACKET PO PRN (16:16)
[2022-11-25] MEDS ORDERED: BISMUTH SUBSALICYLATE 524 MG/30 ML PO PRN (16:16)
[2022-11-25] MEDS ORDERED: LOPERAMIDE HCL 2 MG CAPSULE PO PRN (16:16)
[2022-11-25] MEDS ORDERED: MAGNESIUM HYDROX 2400MG/30ML ORAL SUSPENSION 30 ML CUP PO PRN (16:16)
[2022-11-25] MEDS ORDERED: IBUPROFEN 600 MG TABLET (FP) PO PRN (16:16)
[2022-11-25] MEDS ORDERED: ACETAMINOPHEN 325 MG TABLET (FP) PO PRN (16:16)
[2022-11-25] MEDS ORDERED: DICYCLOMINE HCL 10 MG CAPSULE PO PRN (16:16)
[2022-11-25] MEDS ORDERED: IBUPROFEN 400 MG TABLET (FP) PO PRN (16:16)
[2022-11-25] MEDS ORDERED: NALOXONE HCL (KLOXXADO) 8 MG SPRAY NS PRN (16:16)
[2022-11-25] MEDS ORDERED: METHOCARBAMOL 500 MG TABLET PO PRN (16:16)
[2022-11-25] MEDS ORDERED: NALOXONE HCL 0.4 MG/ML VIAL IM PRN (16:16)
[2022-11-25] MEDS ORDERED: MAG HYDROX/AL HYDROX/SIMETH 30 ML UNIT-DOSE CUP PO PRN (16:16)
[2022-11-25] MEDS ORDERED: guaiFENesin 600 MG TABLET.ER (FP) PO PRN (16:16)
[2022-11-25] MEDS ORDERED: BENZONATATE 200 MG CAPSULE PO PRN (16:16)
[2022-11-25] MEDS ORDERED: ONDANSETRON *ODT* 4 MG TABLET SL PRN (16:16)
[2022-11-25] MEDS ORDERED: BENZOCAINE/MENTHOL (CHLORASEPTIC ) LOZENGE MM PRN (16:16)
[2022-11-25] MEDS: PRENATAL VITAMINS W/ FOLIC ACID TABLET (FP) PO SCH (18:10)
[2022-11-25] MEDS: NICOTINE 21 MG/24 HOURS TOPICAL PATCH TD SCH (18:10)
[2022-11-25] MEDS: THIAMINE HCL 100 MG TABLET (FP) PO SCH (22:11)
[2022-11-25] MEDS: MELATONIN 5 MG TABLETS PO SCH (22:11)
[2022-11-25] MEDS: hydrOXYzine PAMOATE 25 MG CAPSULE (FP) PO PRN (22:12)
[2022-11-26] MEDS: NICOTINE 21 MG/24 HOURS TOPICAL PATCH TD SCH (10:10)
[2022-11-26] MEDS: PRENATAL VITAMINS W/ FOLIC ACID TABLET (FP) PO SCH (10:11)
[2022-11-26] MEDS ORDERED: chlordiazePOXIDE HCL 25 MG CAPSULE PO PRN (10:16)
[2022-11-26 10:36] LABS: POTASSIUM 3.9 mmol/L (3.5-5.1)
[2022-11-26 10:37] LABS: HEMATOCRIT 41.5 % (35.4-49); HEMOGLOBIN 13.5 GM/dL (11.7-16.9); MCH 26.6 pg (25.7-33.7); MCHC 32.6 g/dl (32.0-35.9); MEAN CELL VOLUME 81.7 fl (80-96); MEAN PLT VOLUME 8.6 fl (7.5-11.1); PLATELET COUNT 201 10^3/uL (134-434); RBC 5.08 M/mm3 (4.00-5.60); RDW 16.5 % (11.9-15.9); WHITE BLOOD COUNT 4.8 K/mm3 (4.0-10.0)
[2022-11-26 10:40] LABS: CALCIUM 8.5 mg/dL (8.5-10.1)
[2022-11-26 10:41] LABS: ALBUMIN 2.9 g/dl (3.4-5.0); BLOOD UREA NITROGEN 10.4 mg/dL (7-18)
[2022-11-26 10:46] LABS: BILIRUBIN,TOTAL 0.1 mg/dL (0.2-1); CREATININE 0.7 mg/dL (0.55-1.3)
[2022-11-26] MEDS: chlordiazePOXIDE HCL 25 MG CAPSULE PO SCH ×3 (10:49→22:11)
[2022-11-26] MEDS: MELATONIN 5 MG TABLETS PO SCH (22:11)
[2022-11-26] MEDS: THIAMINE HCL 100 MG TABLET (FP) PO SCH (22:11)
[2022-11-27] MEDS: chlordiazePOXIDE HCL 25 MG CAPSULE PO SCH ×4 (05:31→22:47)
[2022-11-27] MEDS: PRENATAL VITAMINS W/ FOLIC ACID TABLET (FP) PO SCH (10:06)
[2022-11-27] MEDS: NICOTINE 21 MG/24 HOURS TOPICAL PATCH TD SCH (10:07)
[2022-11-27] MEDS: MELATONIN 5 MG TABLETS PO SCH (22:46)
[2022-11-27] MEDS: THIAMINE HCL 100 MG TABLET (FP) PO SCH (22:46)
[2022-11-27] MEDS: hydrOXYzine PAMOATE 25 MG CAPSULE (FP) PO PRN (22:46)
[2022-11-28] MEDS: chlordiazePOXIDE HCL 25 MG CAPSULE PO SCH ×2 (05:56→10:06)
[2022-11-28] MEDS: NICOTINE 21 MG/24 HOURS TOPICAL PATCH TD SCH (10:04)
[2022-11-28] MEDS: PRENATAL VITAMINS W/ FOLIC ACID TABLET (FP) PO SCH (10:04)
[2022-11-28 16:46] VITALS: BP 135/90; PULSE 95; RESP 20; TEMP 98
[2022-11-29] MEDS ORDERED: chlordiazePOXIDE HCL 10 MG CAPSULE PO PRN
[2022-11-29] MEDS ORDERED: chlordiazePOXIDE HCL 10 MG CAPSULE PO SCH (05:00)
[2022-11-30] MEDS ORDERED: chlordiazePOXIDE HCL 10 MG CAPSULE PO SCH (05:00)
[2022-12-01] MEDS ORDERED: chlordiazePOXIDE HCL 10 MG CAPSULE PO ONE (05:00)
== END 2022-11-28 15:43 | disposition left against medical advice (07) | DRG 770 ==
LOC: YASAS 13:32 → Y3N 17:39
PROVIDERS: ADMIT Allergy & Immunology; ATTEND Surgery
PROC: HZ2ZZZZ Detoxification Services for Substance Abuse Treatment (ICD-10-PCS; principal; 2022-11-25)
DX: F10.230 Alcohol dependence with withdrawal, uncomplicated (principal); F14.20 Cocaine dependence, uncomplicated; F15.20 Other stimulant dependence, uncomplicated; F17.210 Nicotine dependence, cigarettes, uncomplicated; F19.982 Other psychoactive substance use, unspecified with psychoactive substance-induced sleep disorder; Z21 Asymptomatic human immunodeficiency virus [HIV] infection status; Z88.8 Allergy status to other drugs, medicaments and biological substances; Z86.59 Personal history of other mental and behavioral disorders; Z91.148 Patient's other noncompliance with medication regimen for other reason; Z56.0 Unemployment, unspecified; Z59.00 Homelessness unspecified
CPT/HCPCS: 36415; 80053; 83036; 85027; 86780; 87635